=== PATIENT | male | born 1990 | race Two or more races ===

== ENCOUNTER 2018-05-13 09:03 | Emergency (ER) | payer MEDICAID ==
[~2018-05-13] VITALS: Ht 170.2 cm; Wt 97.8 kg
[2018-05-13] MEDS ORDERED: ACETAMINOPHEN 500 MG TABLET PO ONE (09:30)
[2018-05-13] MEDS ORDERED: ACETAMINOPHEN 500 MG TABLET ONE (09:33)
[2018-05-13] MEDS ORDERED: ALBUTEROL/IPRATROPIUM 2.5MG/0.5MG, 3 ML ONE (09:54)
[2018-05-13] MEDS: ALBUTEROL/IPRATROPIUM 2.5MG/0.5MG, 3 ML NPPB SCH ×2 (10:01→10:02)
[2018-05-13 10:30] VITALS: BP 122/71
== END 2018-05-13 10:33 | disposition home or self-care (01) ==
LOC: ED 10:18
DX: J45.41 Moderate persistent asthma with (acute) exacerbation (principal)
CPT/HCPCS: 93005; 99283; J7512; J7620